=== PATIENT | male | born 1955 | race Two or more races ===

== ENCOUNTER 2017-07-05 14:58 | Emergency (ER) | payer BC ==
[2017-07-05 15:06] VITALS: BP 143/95
[2017-07-05] MEDS ORDERED: Tetan/Diph/Pertus SYR(Tdap)* 0.5 ML SYR(BOOSTRIX) use SYR IM ONE (17:30)
--- NOTE | 2017-07-05 17:36 | ED ---
Laceration/Wound HPI - HPI Summary HPI Summary: Patient presents to the ED with a laceration to the left dorsum of the forearm from a skeetshooting trap. Denies numbness, tingling, color or temperature changes. Denies pain. Injury occurred approximately 1 hour prior to arrival. Last tetanus unknown. Denies other injuries. The laceration measures 3cm, is moderately deep and width is 1cm. Bleeding is controlled at arrival to the ED. Denies other symptoms. - History of Current Complaint Stated Complaint: LT FOREARM LAC Time Seen by Provider: 07/05/17 16:05 Hx Obtained From: Patient Mechanism of Injury: Sharp/Blunt Trauma Onset/Duration: Sudden Onset Aggravating: Movement Alleviating: Compression Timing: Constant Onset Severity: Mild Current Severity: Mild Pain Intensity: 4 Pain Scale Used: 0-10 Numeric Associated Signs & Symptoms: Negative Related Hx: Dominant Hand (Right) - Allergy/Home Medications Allergies/Adverse Reactions: Allergies Allergy/AdvReac Type Severity Reaction Status Date / Time No Known Allergies Allergy Verified 12/21/14 12:01 PMH/Surg Hx/FS Hx/Imm Hx Previously Healthy: Yes Cardiovascular History: Reports: Hx Hypertension - ON MEDS Denies: Other Cardiovascular Problems/Disorders Respiratory History: Denies: Other Respiratory Problems/Disorders Musculoskeletal History: Reports: Hx Arthritis - ALL OVER Sensory History: Denies: Hx Contacts or Glasses, Hx Hearing Aid Opthamlomology History: Denies: Hx Contacts or Glasses - Surgical History Surgery Procedure, Year, and Place: vein surgery in legs. knee Hx Anesthesia Reactions: No - Immunization History Date of Tetanus Vaccine: unknown Hx Pertussis Vaccination: No Immunizations Up to Date: Unable to Obtain/Confirm Infectious Disease History: Yes Infectious Disease History: Denies: Traveled Outside the [place] in Last 30 Days - Social History Occupation: Employed Full-time Lives: With Family Alcohol Use: None Hx Substance Use: No Substance Use Type: Reports: None Hx Tobacco Use: No Smoking Status (MU): Never Smoked Tobacco Have You Smoked in the Last Year: No Review of Systems Constitutional: Negative Negative: Fever, Chills, Fatigue Cardiovascular: Negative Respiratory: Negative Genitourinary: Negative Positive: no symptoms reported, see HPI Musculoskeletal: Negative Positive: Other - laceration to the rg Neurological: Negative All Other Systems Reviewed And Are Negative: Yes Physical Exam Triage Information Reviewed: Yes Vital Signs On Initial Exam: Initial Vitals Temp Pulse Resp BP Pulse Ox 97.8 F 89 20 143/95 98 07/05/17 15:04 07/05/17 15:04 07/05/17 15:04 07/05/17 15:04 07/05/17 15:04 Vital Signs Reviewed: Yes Appearance: Positive: Well-Appearing, Well-Nourished Skin: Positive: Warm, Skin Color Reflects Adequate Perfusion Head/Face: Positive: Normal Head/Face Inspection Eyes: Positive: EOMI, JUSTO Neck: Positive: Supple, No Lymphadenopathy Respiratory/Lung Sounds: Positive: Clear to Auscultation, Breath Sounds Present Cardiovascular: Positive: Normal, RRR, Pulses are Symmetrical in both Upper and Lower Extremities Musculoskeletal: Positive: Strength/ROM Intact Neurological: Positive: Normal, Sensory/Motor Intact, Alert, Oriented to Person Place, Time, Speech Normal Psychiatric: Positive: Normal - Lamar Coma Scale Coma Scale Total: 15 Diagnostics - Vital Signs Vital Signs Temp Pulse Resp BP Pulse Ox 07/05/17 15:04 97.8 F 89 20 143/95 98 - Laboratory Lab Statement: Any lab studies that have been ordered have been reviewed, and results considered in the medical decision making process. Laceration Repair Course/Dx - Course Course Of Treatment: Timeout obtained. Cleansed wound. Irrigated with 20CC's normal. saline. Lidocaine without epi as local anesthetic - 2ml. 4-0. non- absorbable prolene. 6 sutures placed using simple interrupted. technique. Patient tolerated well. Cleaned and dressed wound with. telfa dressing. NV exam WNL. Sutures out in 7 days. Return. precautions given. Patient OK with discharge. - Differential Dx Differental Diagnoses: Laceration - Clinical Impression Provider Diagnoses: Laceration Discharge - Discharge Plan Condition: Stable Disposition: HOME Patient Education Materials: Care For Your Stitches (ED) Referrals: No Primary Care Phys,NOPCP [Primary Care Provider] - Additional Instructions: Suture removal in 7 days Keep the area covered x 24 hours Then, leave open to air unless you are in a dirty environment
== END 2017-07-05 18:10 | disposition home or self-care (01) ==
LOC: ED 14:58
DX: S51.812A Laceration without foreign body of left forearm, initial encounter (principal); W45.8XXA Other foreign body or object entering through skin, initial encounter; Y93.9 Activity, unspecified; Y92.9 Unspecified place or not applicable; Z23 Encounter for immunization; I10 Essential (primary) hypertension
CPT/HCPCS: 12002; 90471; 90715; 99281